=== PATIENT | male | born 1995 | race Caucasian/White ===

== ENCOUNTER 2023-03-01 21:52 | Emergency (ER) | payer MEDICAID ==
[~2023-03-01] VITALS: Ht 188 cm; Wt 102.3 kg
[2023-03-01 22:25] VITALS: BP 121/62; PULSE 72; RESP 18; TEMP 98.4
[2023-03-01] MEDS ORDERED: TRAZ-252 PO (22:31)
[2023-03-01] MEDS ORDERED: ACAM333T7 PO (22:31)
[2023-03-01] MEDS ORDERED: NICO-703 TP (22:31)
[2023-03-01] MEDS ORDERED: MIRT-92 PO (22:31)
[2023-03-01] MEDS ORDERED: BREX0.5T PO (22:31)
[2023-03-01] MEDS ORDERED: BUPR1FIL SL (22:31)
[2023-03-01] MEDS ORDERED: BUPR200T8 PO (22:31)
[2023-03-01] MEDS ORDERED: EMTR1TAB13 PO (22:31)
[2023-03-01] MEDS ORDERED: ESCI20TA37 PO (22:31)
[2023-03-01 22:47] LABS: BASOPHILS % (AUTO) 0.4 % (0.0-2.0); EOSINOPHILS % (AUTO) 2.1 % (1.0-6.0); HEMATOCRIT 39.4 % (41-53); HEMOGLOBIN 13.4 g/dL (13.5-17.5); LYMPHOCYTES # (AUTO) 2.1 K/uL (1.0-4.8); LYMPHOCYTES % (AUTO) 38.1 % (22.0-44.0); MEAN CORPUSCULAR HEMOGLOBIN 29.8 pg (26.0-34.0); MEAN CORPUSCULAR VOLUME 88 fL (80-100); MONOCYTES # (AUTO) 0.5 K/uL (0.1-1.0); MONOCYTES % (AUTO) 9.5 % (2.0-9.0); NEUTROPHILS # (AUTO) 2.8 K/uL (1.8-7.7); NEUTROPHILS % (AUTO) 49.9 % (40.0-70.0); PLATELET COUNT (AUTO) 253 K/uL (150-450); RED CELL DISTRIBUTION WIDTH 14.4 % (11.5-14.5); WHITE BLOOD COUNT (AUTO) 5.6 K/uL (4.5-11.0)
[2023-03-01 23:10] LABS: ANION GAP 9 mmol/L (8-16); CALCIUM, TOTAL 9.1 mg/dL (8.8-10.5); CARBON DIOXIDE 27 mmol/L (22-29); CHLORIDE 103 mmol/L (98-107); CREATININE 0.76 mg/dL (0.60-1.30); GLOMERULAR FILTR. RATE CALC > 60 mL/min (>60); GLUCOSE,RANDOM 93 mg/dL (70-110); POTASSIUM 3.7 mmol/L (3.5-5.1); SODIUM SERUM 139 mmol/L (136-145); UREA NITROGEN, BLOOD 14 mg/dL (7-18)
[2023-03-01 23:16] LABS: ALANINE AMINOTRANSFERASE 44 U/L (12-78); ALKALINE PHOSPHATASE 113 U/L (46-116); ASPARTATE AMINOTRANSFERASE 41 U/L (15-37); BILIRUBIN,TOTAL 0.2 mg/dL (0.1-1.0); TOTAL PROTEIN, SERUM 6.8 g/dL (6.4-8.2)
[2023-03-01 23:20] LABS: COVID AG,FIA SOURCE NASAL SWAB
[2023-03-01 23:30] LABS: ALCOHOL, BLOOD (SERUM) < 3 mg/dL (0-10)
[2023-03-01 23:40] LABS: SARS-COV2 (COVID) ANTIGEN,FIA Negative (Negative)
== END 2023-03-02 01:45 | disposition home or self-care (01) ==
LOC: EMS 21:52
DX: Z04.6 Encounter for general psychiatric examination, requested by authority (principal); R45.851 Suicidal ideations; F41.9 Anxiety disorder, unspecified; F32.A Depression, unspecified; Z20.822 Contact with and (suspected) exposure to COVID-19
CPT/HCPCS: 99285; 87426; 80053; 85025; 36415; G0480